=== PATIENT | male | born 1980 | race Caucasian/White ===

== ENCOUNTER → 2023-03-08 22:14 | Outpatient (ROUT) | payer OTHER, SELFPAY ==
[2023-03-14 20:36] LABS: Ca oxalate monohydr 100 % (.); Size 7x4 mm (.)
== END ==
PROVIDERS: PCP Nurse Practitioner Family; Visit Provider Specialist
DX: N20.0 Calculus of kidney (principal)
CPT/HCPCS: 82365

== ENCOUNTER → 2023-10-16 14:22 | Outpatient (CLI) | payer OTHER, SELFPAY ==
--- NOTE | 2023-10-16 14:23 | DI.RAD.S_ITS ---
PROCEDURE: XR KUB INDICATIONS: Kidney Stones TECHNIQUE: One view of the abdomen acquired. COMPARISON: [facility], RG, CT ABDOMEN/PELVIS WITHOUT CONTRAST, 01/13/2023, 17:34. FINDINGS: Surgical changes and devices: None. Bowel: Bowel gas pattern is normal. Moderate colonic stool is present. Soft tissues: No suspicious abdominal calcifications. Visualized solid organ contours appear normal in size. Bones: No suspicious bony lesions. IMPRESSION: No visualized stones. Moderate colonic stool without obstruction. Dictated by: Maine Craig M.D. on 10/16/2023 at 21:20 Approved by: Maine Craig M.D. on 10/16/2023 at 21:21
== END ==
PROVIDERS: PCP Nurse Practitioner Family; Referring Provider Specialist; Visit Provider Specialist
DX: N20.0 Calculus of kidney (principal); Z87.442 Personal history of urinary calculi
CPT/HCPCS: 74018